=== PATIENT | male | born 1975 | race Caucasian/White ===

== ENCOUNTER 2020-04-02 13:39 | Outpatient (REF) | payer MEDICARE, MEDICAID, SELFPAY | END 2020-04-02 13:40 | disposition home or self-care (01) | LOC: HO.HAP 13:39 | PROVIDERS: Visit Provider Internal Medicine | DX: Z46.1 Encounter for fitting and adjustment of hearing aid (principal) | CPT/HCPCS: 92593 ==

== ENCOUNTER 2020-05-08 10:47 | Outpatient (REF) | payer MEDICARE, MEDICAID, SELFPAY | END 2020-05-08 10:48 | disposition home or self-care (01) | LOC: HO.HAP 10:47 | PROVIDERS: Visit Provider Internal Medicine | DX: Z46.1 Encounter for fitting and adjustment of hearing aid (principal) | CPT/HCPCS: V5266 ==

== ENCOUNTER 2020-05-28 08:10 | Outpatient (REF) | payer MEDICARE, MEDICAID, SELFPAY | END 2020-05-28 08:11 | disposition home or self-care (01) | LOC: HO.HAP 08:10 | PROVIDERS: Visit Provider Internal Medicine | DX: Z46.1 Encounter for fitting and adjustment of hearing aid (principal); H90.3 Sensorineural hearing loss, bilateral | CPT/HCPCS: 92593; 99499 ==

== ENCOUNTER 2020-09-17 10:45 | Outpatient (REF) | payer MEDICARE, MEDICAID, SELFPAY | END 2020-09-17 10:46 | disposition home or self-care (01) | LOC: HO.HAP 10:45 | PROVIDERS: Visit Provider Internal Medicine | DX: Z46.1 Encounter for fitting and adjustment of hearing aid (principal); H90.3 Sensorineural hearing loss, bilateral | CPT/HCPCS: V5266 ==

== ENCOUNTER 2020-12-18 08:12 | Outpatient (REF) | payer MEDICARE, MEDICAID, SELFPAY ==
--- NOTE | 2020-12-18 08:49 | MHC.AU.HFU ---
Hearing Instrument Follow-Up- Binaural Date of Visit: 12/18/20 Right Ear: Shoddy Mill Worker: Phonak Model: Tiantian. comeo M70-13T Serial Number: [id number] Repair Warranty: 09/01/2022 Battery Size: 13 Double End Chucking Machine Operator: 2M Type of Mold: Slim Tip Type of Wax Guard: CeruStop Dispensed By: [facility] Date of Fittin06/07/2019 Left Ear: Shoddy Mill Worker: Phonak Model: Audeo [id number] Serial Number: [id number] Repair Warranty: 09/01/2022 Battery Size: 13 Double End Chucking Machine Operator: 2M Type of Mold: SlimTip Type of Wax Guard: CeruStop Dispensed By: [facility] Date of Fittin06/07/2019 Follow-Up Summary: Patient arrived to picket [employer] batteries. Dispensed 42 batteries. He also reported that the wax trap will not stay in place in his right mold because the sibley ring had broken off. He is having difficulty hearing out of the right hearing aid. There was cerumen deep in the racing secretary and handicapper. A new 2M racing secretary and handicapper was placed on the right instrument. The mold was placed back on the racing secretary and handicapper for now. Patient reported that the hearing aid sounded back to normal after maintenance. A copy of his right mold was ordered from [employer]. Also requested another 2M racing secretary and handicapper to replace the one used from stock. Recommendations: Recommendations: Patient will be contacted when materials have arrived. Diagnosis Code(s): Primary Diagnosis: H90.3 Bilateral Sensorineural Hearing Loss Signature: Provider: Davis Mujica, [facility]
== END 2020-12-18 08:13 | disposition home or self-care (01) ==
LOC: HO.HAP 08:12
PROVIDERS: Visit Provider Internal Medicine
DX: Z46.1 Encounter for fitting and adjustment of hearing aid (principal); H90.3 Sensorineural hearing loss, bilateral
CPT/HCPCS: V5266

== ENCOUNTER 2020-12-18 08:19 | Outpatient (REF) | payer SELFPAY | END 2020-12-18 08:20 | disposition home or self-care (01) | LOC: HO.HAP 08:19 | PROVIDERS: Visit Provider Internal Medicine | DX: Z46.1 Encounter for fitting and adjustment of hearing aid (principal); H90.3 Sensorineural hearing loss, bilateral | CPT/HCPCS: V5267 ==

== ENCOUNTER 2021-01-05 09:14 | Outpatient (REF) | payer MEDICARE, MEDICAID, SELFPAY | END 2021-01-05 09:15 | disposition home or self-care (01) | LOC: HO.HAP 09:14 | PROVIDERS: Visit Provider Internal Medicine | DX: Z13.89 Encounter for screening for other disorder (principal) ==

== ENCOUNTER 2021-01-21 10:48 | Outpatient (REF) | payer MEDICARE, MEDICAID, SELFPAY ==
--- NOTE | 2021-01-27 10:48 | MHC.AU.HFU ---
Hearing Instrument Follow-Up- Binaural Date of Visit: 01/21/21 Right Ear: Wet Sander: Phonak Model: Lost My Nameeo M70-13T Serial Number: [id number] Repair Warranty: 09/01/2022 Battery Size: 13 Process Technician: 2M Type of Mold: Slim Tip Type of Wax Guard: CeruStop Dispensed By: [facility] Date of Fittin06/07/2019 Left Ear: Wet Sander: Phonak Model: Daviseo [id number] Serial Number: [id number] Repair Warranty: 09/01/2022 Battery Size: 13 Process Technician: 2M Type of Mold: SlimTip Type of Wax Guard: CeruStop Dispensed By: [facility] Date of Fittin06/07/2019 Follow-Up Summary: Previously, remake of the right slim tip was requested, as the previous one lost the retention ring for the wax guards. The slim tip Phonak sent also did not have the ring for the wax guard. It was sent back to [facility]. It was noted today that while the retention ring was placed back on, they made it in a canal lock shape instead of skeleton lock. It was placed on the patient's right hearing aid for now. He would like to use this one for the time being. Feedback sales and business development manager was re-run. [facility] will be contacted about their mistake and we will request a correct remake. Recommendations: Recommendations: When the correct slim tip is in, the patient can be contacted. If the current mold has been working out okay, he may opt to tack picker the remade mold the next time he is at our office for batteries, hearing test, etc. If the current mold has not been working out well, then he may want to schedule an appointment to tack picker the mold sooner. Diagnosis Code(s): Primary Diagnosis: H90.3 Bilateral Sensorineural Hearing Loss Signature: Provider: Davsi Mujica, BRETT-A
== END 2021-01-21 10:49 | disposition home or self-care (01) ==
LOC: HO.HAP 10:48
PROVIDERS: Visit Provider Internal Medicine
DX: Z46.1 Encounter for fitting and adjustment of hearing aid (principal); H90.3 Sensorineural hearing loss, bilateral
CPT/HCPCS: V5264

== ENCOUNTER 2021-02-08 07:52 | Outpatient (REF) | payer MEDICARE, MEDICAID, SELFPAY | END 2021-02-08 07:53 | disposition home or self-care (01) | LOC: HO.HAP 07:52 | PROVIDERS: Visit Provider Internal Medicine | DX: Z13.89 Encounter for screening for other disorder (principal) ==

== ENCOUNTER 2021-03-19 09:44 | Outpatient (REF) | payer MEDICARE, MEDICAID, SELFPAY | END 2021-03-19 09:45 | disposition home or self-care (01) | LOC: HO.HAP 09:44 | PROVIDERS: Visit Provider Internal Medicine | DX: Z46.1 Encounter for fitting and adjustment of hearing aid (principal); H90.3 Sensorineural hearing loss, bilateral | CPT/HCPCS: V5266 ==

== ENCOUNTER 2021-06-25 09:39 | Outpatient (REF) | payer MEDICARE, MEDICAID, SELFPAY ==
--- NOTE | 2021-06-25 11:19 | MHC.AU.HFU ---
Hearing Instrument Follow-Up- Binaural Date of Visit: 06/25/21 Right Ear: Business Services Coordinator: Phonak Model: Daviseo M70-13T Serial Number: [id number] Repair Warranty: 09/01/2022 Battery Size: 13 Color: Beige Wafer Cleaner: 2M Type of Mold: Slim Tip Type of Wax Guard: CeruStop Dispensed By: [facility] Date of Fittin06/07/2019 Left Ear: Business Services Coordinator: Phonak Model: Audeo [id number] Serial Number: [id number] Repair Warranty: 09/01/2022 Battery Size: 13 Color: Beige Wafer Cleaner: 2M Type of Mold: SlimTip Type of Wax Guard: CeruStop Dispensed By: [facility] Date of Fittin06/07/2019 Follow-Up Summary: Patient reports the right hearing aid is weaker than the left. He has noticed this difference for awhile. Listening check indicated right aid weaker than left, even after cleaning mics, contact, and changing wax guards (CeruStop and CeruShield) for both aids. RIGHT SLIM TIP BROKE WHEN REMOVING FROM THE HOUSE PARENT TODAY (but patient can still use) AND THE LEFT SLIM TIP DOES NOT HAVE A WAX GUARD RING. ORDERING BINAURAL C-SHELL SKELETON MOLDS USING SCAN ON FILE. Reviewing the settings, after the last right slim tip was fit and feedback test run, many frequencies were reduced significantly compared to the previous session. Returned to the 05/28/2020 settings and made some adjustments adjustment only for the right ear to sound closer to the left aid. Recommendations: - Schedule EM Fitting appointment when in - Advised audiologic re-evaluation. Patient will contact PCP to have order faxed. Diagnosis Code(s): Primary Diagnosis: H90.3 Bilateral Sensorineural Hearing Loss Signature:Provider: Davis Ortiz, BRETT-A
== END 2021-06-25 09:40 | disposition home or self-care (01) ==
LOC: HO.HAP 09:39
PROVIDERS: Visit Provider Internal Medicine
DX: Z46.1 Encounter for fitting and adjustment of hearing aid (principal); H90.3 Sensorineural hearing loss, bilateral
CPT/HCPCS: V5266

== ENCOUNTER 2021-07-19 10:01 | Outpatient (REF) | payer MEDICARE, MEDICAID, SELFPAY | END 2021-07-19 10:02 | disposition home or self-care (01) | LOC: HO.HAP 10:01 | PROVIDERS: Visit Provider Internal Medicine | DX: Z46.1 Encounter for fitting and adjustment of hearing aid (principal); H90.3 Sensorineural hearing loss, bilateral | CPT/HCPCS: V5264 ==

== ENCOUNTER 2021-08-16 12:10 | Outpatient (REF) | payer MEDICARE, MEDICAID, SELFPAY ==
--- NOTE | 2021-08-16 12:44 | MHC.AU.HFU ---
Hearing Instrument Follow-Up- Binaural Date of Visit: 08/16/21 Right Ear: Holter Technician: Phonak Model: uStudioeo M70-13T Serial Number: [id number] Repair Warranty: 09/01/2022 Loss and Damage Warranty: Battery Size: 13 Color: Beige Cnc Lathe Machine Operator: 2M Type of Mold: Phonak Canal Lock Slim Tip #[id number] Warranty 11/25/2021) Type of Wax Guard: CeruStop Dispensed By: [facility] Date of Fittin06/07/2019 Left Ear: Holter Technician: Phonak Model: Audeo [id number] Serial Number: [id number] Repair Warranty: 09/01/2022 Loss and Damage Warranty: Battery Size: 13 Color: Beige Cnc Lathe Machine Operator: 2M Type of Mold: Phonak Canal Lock Slim Tip #[id number] Warranty 11/25/2021) Type of Wax Guard: CeruStop Dispensed By: [facility] Date of Fittin06/07/2019 Follow-Up Summary: Patient fit with the binaural canal lock slim tips. See 08/02/2021 e-mail with Silvano Osorio about receiving incorrect remake. Ran feedback test. Patient reports much improved feel/comfort and better sound quality. Patient has contacted PCP to fax order for audiologic re-evaluation. Recommendations: Hearing instrument follow-up or maintenance as needed. Please contact our clinic with any questions or concerns. Diagnosis Code(s): Primary Diagnosis: H90.3 Bilateral Sensorineural Hearing Loss Services Performed:DE OLIVEIRA Non-Quantity Charges: HANC: NonBillable Event Signature:Provider: Penny Ortiz, [facility]
== END 2021-08-16 12:11 | disposition home or self-care (01) ==
LOC: HO.HAP 12:10
PROVIDERS: Visit Provider Internal Medicine
DX: Z13.89 Encounter for screening for other disorder (principal)

== ENCOUNTER 2021-09-08 09:41 | Outpatient (REF) | payer MEDICARE, MEDICAID, SELFPAY | END 2021-09-08 09:42 | disposition home or self-care (01) | LOC: HO.HAP 09:41 | PROVIDERS: Visit Provider Internal Medicine | DX: Z13.89 Encounter for screening for other disorder (principal) ==

== ENCOUNTER 2021-10-01 09:04 | Outpatient (REF) | payer MEDICARE, MEDICAID, SELFPAY | END 2021-10-01 09:05 | disposition home or self-care (01) | LOC: HO.HAP 09:04 | PROVIDERS: Visit Provider Internal Medicine | DX: Z46.1 Encounter for fitting and adjustment of hearing aid (principal); H90.3 Sensorineural hearing loss, bilateral | CPT/HCPCS: V5266 ==

== ENCOUNTER 2021-11-01 10:54 | Outpatient (REF) | payer MEDICARE, MEDICAID, SELFPAY | END 2021-11-01 10:55 | disposition home or self-care (01) | LOC: HO.HAP 10:54 | PROVIDERS: Visit Provider Internal Medicine | DX: Z46.1 Encounter for fitting and adjustment of hearing aid (principal); H90.3 Sensorineural hearing loss, bilateral | CPT/HCPCS: V5275 ==

== ENCOUNTER 2021-11-29 14:31 | Outpatient (REF) | payer MEDICARE, MEDICAID, SELFPAY | END 2021-11-29 14:32 | disposition home or self-care (01) | LOC: HO.HAP 14:31 | PROVIDERS: Visit Provider Internal Medicine | DX: Z46.1 Encounter for fitting and adjustment of hearing aid (principal); H90.3 Sensorineural hearing loss, bilateral | CPT/HCPCS: V5264 ==

== ENCOUNTER 2021-12-17 12:39 | Outpatient (REF) | payer MEDICARE, MEDICAID, SELFPAY ==
--- NOTE | 2021-12-17 14:54 | MHC.AU.AHA ---
Adult Audiological Evaluation Date of Visit: 12/17/21 Reason for Appointment: Patient questions if there has been a change in his hearing. He has been turning the volume up on his hearing aids each time he puts them on. Previous Hearing Test Results: At this clinic on 05/21/2019- Borderline-normal to severe sensorineural hearing loss bilaterally Medical History: Medical History: No major medical changes reported since last visit Hearing Instrument History- Right Ear: Secondary School Teacher: Phonak Model: Eggs Overnighteo M70-13T Serial Number: [id number] Battery Size: 13 Repair Warranty: 09/01/2022 Dispensed By: [facility] Date of Fittin06/07/2019 Hearing Instrument History- Left Ear: Secondary School Teacher: Phonak Model: Eggs Overnighteo [id number] Serial Number: [id number] Battery Size: 13 Warranty: 09/01/2022 Dispensed By: [facility] Date of Fittin06/07/2019 Otoscopy: Right Ear: Unremarkable Left Ear: Unremarkable Tympanometry: Tympanometry performed due to: To assess integrity of the middle ear system Right Ear: Normal Middle Ear System (Type A) Left Ear: Normal Middle Ear System (Type A) Hearing Evaluation: Transducer(s) Used: Insert Earphones Method: Conventional Audiometry Stimuli Used: Pure Tones Right Ear: Description of Hearing: Mild to severe sensorineural hearing loss Left Ear: Description of Hearing: Mild to severe sensorineural hearing loss Speech Recognition Threshold (SRT): Method Used: Recorded Lists Stimuli Used: Spondee Words Right Ear: 50 dBHL Left Ear: 50 dBHL Word Discrimination: Method: Recorded Lists Word Lists Used: W-22 Right Ear: 76% at 85 dBHL Left Ear: 72% at 85 dBHL Most Comfortable Level (MCL): Right Ear: 85 dBHL Left Ear: 85 dBHL Comparison: Slight decreases noted since 2019 evaluation. Recommendations: Audiological re-evaluation in one year. Hearing aid maintenance performed today. Hearing aid programming was updated with today's results. At patient's request, overall gain raised by 1 additional step. Feedback competitive intelligence manager re-run. Patient was pleased with the adjustments. Diagnosis: Primary Diagnosis: H90.3 Bilateral Sensorineural Hearing Loss Signature: Provider: Davis Mujica, BRETT-A
== END 2021-12-17 12:40 | disposition home or self-care (01) ==
LOC: HO.SH 12:39
PROVIDERS: Visit Provider Internal Medicine
DX: Z01.118 Encounter for examination of ears and hearing with other abnormal findings (principal); Z46.1 Encounter for fitting and adjustment of hearing aid; H90.3 Sensorineural hearing loss, bilateral
CPT/HCPCS: 92557; 92567; V5020

== ENCOUNTER 2022-01-13 15:39 | Outpatient (REF) | payer MEDICARE, MEDICAID, SELFPAY ==
--- NOTE | 2022-01-18 08:39 | MHC.AU.HFU ---
Hearing Instrument Follow-Up- Binaural Date of Visit: 01/13/22 Right Ear: Change Management Coordinator: Phonak Model: Daviseo M70-13T Serial Number: [id number] Repair Warranty: 09/01/2022 Battery Size: 13 Color: Beige Weaver Apprentice: 2M Type of Mold: Microsonic Canal Lock M2000 Clear Medium Vent Type of Wax Guard: CeruStop Dispensed By: [facility] Date of Fittin06/07/2019 Left Ear: Change Management Coordinator: Phonak Model: Daviseo [id number] Serial Number: [id number] Repair Warranty: 09/01/2022 Battery Size: 13 Color: Beige Weaver Apprentice: 2M Type of Mold: Microsonic Canal Lock M2000 Clear Medium Vent Type of Wax Guard: CeruStop Dispensed By: [facility] Date of Fittin06/07/2019 Follow-Up Summary: Patient reports since the last visit when aids were re-programmed after his audiologic re-evaluation, he has been experiencing sudden changes in sound as the aids seem to be adjusting on their own. This occurs particularly when in his vehicle or fans/background noise in the louse. He reports the background noise seems too loud most of the time. In reviewing settings of aids, it appears the latest firmware update was performed last visit. Contacted [facility] and spoke with Chava. In [employer] program, changed transition to slow. Calm/Speech in Noise/ Comfort in Noise, increased noise block 2 steps. Increased 0356-4667 Hz overall 3 dB. Recommendations: Patient will try and call office if having difficulty. Diagnosis Code(s): Primary Diagnosis: H90.3 Bilateral Sensorineural Hearing Loss Services Performed:DE OLIVEIRA Non-Quantity Charges: HACHECKB (MH>1 yr or new to us) Face to face appointment Signature:Provider: Davis Ortiz, BRETT-A
== END 2022-01-13 15:40 | disposition home or self-care (01) ==
LOC: HO.HAP 15:39
PROVIDERS: Visit Provider Internal Medicine
DX: Z46.1 Encounter for fitting and adjustment of hearing aid (principal); H90.3 Sensorineural hearing loss, bilateral
CPT/HCPCS: 92593; V5266

== ENCOUNTER 2022-04-19 10:15 | Outpatient (REF) | payer MEDICARE, MEDICAID, SELFPAY | END 2022-04-19 10:16 | disposition home or self-care (01) | LOC: HO.HAP 10:15 | PROVIDERS: Visit Provider Internal Medicine | DX: Z46.1 Encounter for fitting and adjustment of hearing aid (principal); H90.3 Sensorineural hearing loss, bilateral | CPT/HCPCS: V5266 ==

== ENCOUNTER 2022-05-31 08:33 | Outpatient (REF) | payer SELFPAY | END 2022-05-31 08:34 | disposition home or self-care (01) | LOC: HO.HAP 08:33 | PROVIDERS: Visit Provider Internal Medicine | DX: Z46.1 Encounter for fitting and adjustment of hearing aid (principal); H90.3 Sensorineural hearing loss, bilateral | CPT/HCPCS: V5267 ==

== ENCOUNTER 2022-07-22 08:43 | Outpatient (REF) | payer MEDICARE, MEDICAID, SELFPAY | END 2022-07-22 08:44 | disposition home or self-care (01) | LOC: HO.HAP 08:43 | PROVIDERS: Visit Provider Internal Medicine | DX: Z46.1 Encounter for fitting and adjustment of hearing aid (principal); H90.3 Sensorineural hearing loss, bilateral | CPT/HCPCS: V5266 ==

== ENCOUNTER 2022-07-22 08:45 | Outpatient (REF) | payer SELFPAY | END 2022-07-22 08:46 | disposition home or self-care (01) | LOC: HO.HAP 08:45 | PROVIDERS: Visit Provider Internal Medicine | DX: Z46.1 Encounter for fitting and adjustment of hearing aid (principal); H90.3 Sensorineural hearing loss, bilateral | CPT/HCPCS: V5267 ==

== ENCOUNTER 2022-10-10 08:59 | Outpatient (REF) | payer MEDICARE, MEDICAID, SELFPAY | END 2022-10-10 09:00 | disposition home or self-care (01) | LOC: HO.HAP 08:59 | PROVIDERS: Visit Provider Internal Medicine | DX: Z46.1 Encounter for fitting and adjustment of hearing aid (principal); H90.3 Sensorineural hearing loss, bilateral | CPT/HCPCS: 92593; 92595; V5011 ==

== ENCOUNTER 2022-10-27 08:19 | Outpatient (REF) | payer MEDICARE, MEDICAID, SELFPAY | END 2022-10-27 08:20 | disposition home or self-care (01) | LOC: HO.HAP 08:19 | PROVIDERS: Visit Provider Internal Medicine | DX: Z46.1 Encounter for fitting and adjustment of hearing aid (principal); H90.3 Sensorineural hearing loss, bilateral | CPT/HCPCS: 92593; 99499; V5011; V5014; V5020 ==

== ENCOUNTER 2022-11-30 13:59 | Outpatient (REF) | payer MEDICARE, MEDICAID, SELFPAY | END 2022-11-30 14:00 | disposition home or self-care (01) | LOC: HO.HAP 13:59 | PROVIDERS: Visit Provider Internal Medicine | DX: Z13.89 Encounter for screening for other disorder (principal) ==

== ENCOUNTER 2023-03-09 09:46 | Outpatient (REF) | payer SELFPAY | END 2023-03-09 09:47 | disposition home or self-care (01) | LOC: HO.HAP 09:46 | PROVIDERS: Visit Provider Internal Medicine | DX: Z46.1 Encounter for fitting and adjustment of hearing aid (principal); H90.3 Sensorineural hearing loss, bilateral | CPT/HCPCS: V5267 ==

== ENCOUNTER 2023-03-09 09:54 | Outpatient (REF) | payer MEDICARE, MEDICAID, SELFPAY | END 2023-03-09 09:55 | disposition home or self-care (01) | LOC: HO.HAP 09:54 | PROVIDERS: Visit Provider Internal Medicine | DX: Z46.1 Encounter for fitting and adjustment of hearing aid (principal); H90.3 Sensorineural hearing loss, bilateral | CPT/HCPCS: V5266 ==

== ENCOUNTER 2024-02-29 09:10 | Outpatient (REF) | payer MEDICARE, MEDICAID, SELFPAY | END 2024-02-29 09:11 | disposition home or self-care (01) | LOC: HO.HAP 09:10 | PROVIDERS: Visit Provider Internal Medicine | DX: Z46.1 Encounter for fitting and adjustment of hearing aid (principal); H90.3 Sensorineural hearing loss, bilateral | CPT/HCPCS: V5266 ==

== ENCOUNTER 2024-02-29 09:11 | Outpatient (REF) | payer SELFPAY | END 2024-02-29 09:12 | disposition home or self-care (01) | LOC: HO.HAP 09:11 | PROVIDERS: Visit Provider Internal Medicine | DX: Z46.1 Encounter for fitting and adjustment of hearing aid (principal); H90.3 Sensorineural hearing loss, bilateral | CPT/HCPCS: V5267 ==